=== PATIENT | female | born 1965 | race Caucasian/White ===

== ENCOUNTER 2022-07-12 07:48 | Outpatient (REF) | payer OTHER, SELFPAY ==
--- NOTE | ~2022-07-12 | US_ITS ---
EXAMINATION: US LOWER EXTREMITY VENOUS (REFLUX EXAM), BILATERAL CLINICAL INDICATION: Chronic venous insufficiency, bilateral extremity varicose veins. History of prior bilateral great saphenous vein radiofrequency ablation COMPARISON: None. TECHNIQUE: Color flow triplex imaging and compression Doppler was performed to evaluate both the deep and the superficial systems bilaterally. To evaluate the superficial system, the examination was performed in the upright position. Color-flow Doppler ultrasound and compression ultrasound were utilized. In addition, maneuvers were utilized to demonstrate reflux. FINDINGS: 1. DEEP VENOUS ULTRASOUND OF THE RIGHT LOWER EXTREMITY: Common Femoral Vein: Compressible, normal respiratory variation and augmented flow. Femoral Vein: Compressible, normal color flow and augmentation. Popliteal Vein: Compressible, normal augmentation. Deep Reflux: There is no evidence of reflux in the deep system in either the common femoral vein or the popliteal vein. There is no evidence of a Chapin's cyst. 2. SUPERFICIAL ULTRASOUND WITH DOPPLER OF RIGHT LOWER EXTREMITY: GREAT SAPHENOUS VEIN: Saphenofemoral Junction: 0.9 cm; Reflux: 0 ms Proximal Thigh: 0.6 cm; Reflux: 0 ms Mid Thigh: Not visualized from a prior ablation Above Knee: Not visualized from a prior ablation At Knee: 0.3 cm; Reflux: 0 ms Below Knee: 0.5 cm; Reflux: 0 ms Mid Calf: 0.3 cm; Reflux: 2288 ms Ankle: 0.2 cm; Reflux: 488 ms DUPLICATED MEDIAL GREAT SAPHENOUS VEIN: Diameter: None Imaged Reflux: NA DUPLICATED LATERAL GREAT SAPHENOUS VEIN: Diameter: 0.3 cm Reflux: None SMALL SAPHENOUS VEIN: Proximal: 0.2 cm; Reflux: 0 ms Mid: 0.2 cm; reflux: 736 ms Distal: 0.3 cm; Reflux: 0 ms VEIN OF GIACOMINI: Vein of Giacomini/thigh extension measures 2 mm without significant reflux PERFORATORS: Location: Mid calf Size: 0.6 cm Reflux: 988 milliseconds VARICOSITIES: Location: Mid calf arising from of the residual greater saphenous vein and cathode maker veins Size: 0.3 cm Reflux: Ranging from 1140 - 2036 ms 3. DEEP VENOUS ULTRASOUND OF THE LEFT LOWER EXTREMITY: Common Femoral Vein: Compressible, normal respiratory variation and augmented flow. Femoral Vein: Compressible, normal color flow and augmentation. Popliteal Vein: Compressible, normal augmentation. Deep Reflux: There is no evidence of reflux in the deep system in either the common femoral vein or the popliteal vein. There is no evidence of a Chapin's cyst. 4. SUPERFICIAL ULTRASOUND WITH DOPPLER OF LEFT LOWER EXTREMITY: GREAT SAPHENOUS VEIN: Saphenofemoral Junction: 0.8 cm; Reflux: 0 ms Proximal Thigh: Not visualized from prior ablation Mid Thigh: 0.1 cm; Reflux: 1180 ms Above Knee: 0.2 cm; Reflux: 0 ms At Knee: Not visualized from prior ablation Below Knee: 0.2 cm; Reflux: 1276 ms Mid Calf: 0.3 cm; Reflux: 0 ms Ankle: 0.3 cm; Reflux: 0 ms DUPLICATED MEDIAL GREAT SAPHENOUS VEIN: Diameter: 0.3 cm Reflux: None DUPLICATED LATERAL GREAT SAPHENOUS VEIN: Diameter: None Imaged Reflux: NA SMALL SAPHENOUS VEIN: Proximal: 0.3 cm; Reflux: 0 ms Distal: 0.3 cm; Reflux: 0 ms VEIN OF GIACOMINI: None Imaged. PERFORATORS: Location: None Imaged Size: NA Reflux: NA VARICOSITIES: Location: Calf Size: 0.3 cm Reflux: 924 ms US/US venous duplex LE BI IMPRESSION: Right: Great saphenous vein in the mid to distal thigh is not visualized consistent with prior radiofrequency ablation. Reflux seen in the residual great saphenous vein in the mid calf to ankle. 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 Multiple varicosities seen in the mid the calf arising from the cathode maker vein and residual great saphenous vein Left: Segments of the great saphenous vein in the left thigh are not visualized consistent with radiofrequency ablation. There are areas of recanalization in the mid to distal thigh from adjacent varicosities. Reflux seen in the residual great saphenous vein in the calf. Varicose veins seen in the calf arising from the residual greater saphenous vein
== END 2022-07-12 07:49 | disposition home or self-care (01) ==
LOC: HO.US 07:48
PROVIDERS: Visit Provider Surgery Vascular Surgery
DX: I83.12 Varicose veins of left lower extremity with inflammation (principal)
CPT/HCPCS: 93970